=== PATIENT | female | born 1990 | race Caucasian/White ===

== ENCOUNTER → 2017-08-25 | Outpatient (REF) | payer BC | LOC: M LAB REF 14:50 | DX: Z12.4 Encounter for screening for malignant neoplasm of cervix (principal) | CPT/HCPCS: G0123 ==

== ENCOUNTER → 2017-11-13 | Outpatient (CLI) | payer BC ==
[2017-11-13 10:03] LABS: HEMOGLOBIN 14.6 g/dl (12.0-15.5); MEAN CORPUSCULAR HEMOGLOBIN 28.8 pg (27.0-33.0); MEAN CORPUSCULAR VOLUME 84.8 fl (80.0-96.0); PLATELET COUNT, AUTOMATED 260 10^3/uL (150-450); RED BLOOD COUNT 5.07 10^6/uL (4.00-5.40); RED CELL DISTRIBUTION WIDTH 12.4 % (11.5-14.5); WHITE BLOOD COUNT 6.9 10^3/uL (4.0-10.0)
[2017-11-13 10:44] LABS: ALBUMIN 4.1 GM/DL (3.2-5.2); ALBUMIN/GLOBULIN RATIO 1.11 (1.00-1.93); ALKALINE PHOSPHATASE 151 U/L (45-117); ALT/SGPT 23 U/L (12-78); ANION GAP 7 MEQ/L (8-16); AST/SGOT 15 U/L (7-37); BILIRUBIN,TOTAL 0.5 MG/DL (0.2-1.0); BLOOD UREA NITROGEN 13 MG/DL (7-18); CARBON DIOXIDE LEVEL 28 MEQ/L (21-32); CHLORIDE LEVEL 106 MEQ/L (98-107); CREATININE FOR GFR 0.78 MG/DL (0.55-1.30); GLOMERULAR FILTRATION RATE > 60.0 (>60); GLUCOSE, FASTING 96 MG/DL (70-100); POTASSIUM SERUM 4.4 MEQ/L (3.5-5.1); SODIUM LEVEL 141 MEQ/L (136-145); TOTAL PROTEIN 7.8 GM/DL (6.4-8.2)
[2017-11-13 11:03] LABS: ESTIMATED AVERAGE GLUCOSE 126 MG/DL (60-110)
== END ==
LOC: M WUC 08:52
DX: Z00.00 Encounter for general adult medical examination without abnormal findings (principal); Z83.3 Family history of diabetes mellitus; Z83.49 Family history of other endocrine, nutritional and metabolic diseases
CPT/HCPCS: 84443

== ENCOUNTER → 2018-12-14 | Outpatient (REF) | payer BC ==
[~2018-12-14] MED LIST: GLYB-147; IBUP-1114 PO; MAPA500T2 PO; TUMS500C PO
== END ==
LOC: M LAB REF 17:35
PROVIDERS: ATTEND Advanced Practice Midwife
DX: Z12.4 Encounter for screening for malignant neoplasm of cervix (principal)

== ENCOUNTER → 2019-07-12 | Outpatient (REF) | payer BC ==
[2019-07-12 22:31] LABS: CHLAMYDIA DNA AMPLIFICATION NEGATIVE (NEGATIVE); GC DNA AMPLIFICATION NEGATIVE (NEGATIVE)
== END ==
LOC: M WUC 09:55
PROVIDERS: ATTEND Physician Assistant
DX: N30.00 Acute cystitis without hematuria (principal)

== ENCOUNTER → 2019-08-02 | Outpatient (REF) | payer BC ==
[2019-08-03 13:44] LABS: CHLAMYDIA DNA AMPLIFICATION NEGATIVE (NEGATIVE); GC DNA AMPLIFICATION NEGATIVE (NEGATIVE)
== END ==
LOC: M SFHCWAGY 10:13
PROVIDERS: ATTEND Nurse Practitioner Women's Health
DX: Z11.3 Encounter for screening for infections with a predominantly sexual mode of transmission (principal); N89.8 Other specified noninflammatory disorders of vagina

== ENCOUNTER → 2019-12-20 | Outpatient (REF) | payer BC ==
[2019-12-20 20:57] LABS: CHLAMYDIA DNA AMPLIFICATION NEGATIVE (NEGATIVE); GC DNA AMPLIFICATION NEGATIVE (NEGATIVE)
== END ==
LOC: M SFHCWAGY 16:36
PROVIDERS: ATTEND Nurse Practitioner Women's Health
DX: Z11.3 Encounter for screening for infections with a predominantly sexual mode of transmission (principal)

== ENCOUNTER → 2021-03-06 | Outpatient (CLI) | payer BC ==
[2021-03-06 11:50] LABS: HEMATOCRIT 42.4 % (36.0-47.0); HEMOGLOBIN 14.4 g/dl (12.0-15.5); MEAN CORPUSCULAR HEMOGLOBIN 30.5 pg (27.0-33.0); MEAN CORPUSCULAR VOLUME 89.8 fl (80.0-96.0); PLATELET COUNT, AUTOMATED 230 10^3/uL (150-450); RED BLOOD COUNT 4.72 10^6/uL (4.00-5.40)
[2021-03-06 12:25] LABS: ALBUMIN 3.8 GM/DL (3.2-5.2); ALT/SGPT 29 U/L (12-78); BILIRUBIN,TOTAL 0.8 MG/DL (0.2-1.0); BLOOD UREA NITROGEN 12 MG/DL (7-18); CALCIUM LEVEL 9.2 MG/DL (8.5-10.1); CARBON DIOXIDE LEVEL 32 MEQ/L (21-32); CHLORIDE LEVEL 103 MEQ/L (98-107); FERRITIN 59 NG/ML (8-252); GLOMERULAR FILTRATION RATE > 60.0 (>60); GLUCOSE, FASTING 100 MG/DL (70-100); IRON (FE) 132 UG/DL (50-170); PERCENT SATURATION 56.4 % (13.2-45.0); POTASSIUM SERUM 3.9 MEQ/L (3.5-5.1); SODIUM LEVEL 138 MEQ/L (136-145); TOTAL IRON BINDING CAPACITY 234 UG/DL (250-450); TOTAL PROTEIN 7.1 GM/DL (6.4-8.2)
[2021-03-06 12:28] LABS: HEMOGLOBIN A1c 5.2 %
== END ==
LOC: M WUC 08:58
PROVIDERS: ATTEND Nurse Practitioner Adult Health
DX: Z00.00 Encounter for general adult medical examination without abnormal findings (principal); Z83.3 Family history of diabetes mellitus; Z83.49 Family history of other endocrine, nutritional and metabolic diseases; R53.83 Other fatigue

== ENCOUNTER → 2021-05-26 | Outpatient (REF) | payer BC ==
[2021-05-26 19:18] LABS: APPEARANCE, URINE CLEAR (CLEAR); BACTERIA, URINE AUTO NEGATIVE (NEGATIVE); BILIRUBIN, URINE AUTO NEGATIVE (NEGATIVE); BLOOD, URINE BLOOD NEGATIVE (NEGATIVE); COLOR, URINE YELLOW (YELLOW); GLUCOSE, URINE (UA) AUTO NEGATIVE (NEGATIVE); KETONE, URINE AUTO NEGATIVE (NEGATIVE); LEUKOCYTE ESTERASE, URINE AUTO NEGATIVE (NEGATIVE); NITRITE, URINE AUTO NEGATIVE (NEGATIVE); PROTEIN, URINE AUTO NEGATIVE (NEGATIVE); RBC, URINE AUTO 0 /HPF (0-3); SPECIFIC GRAVITY URINE AUTO 1.013 (1.002-1.035); SQUAMOUS EPITHELIAL CELL UR AU 4 /HPF (0-6); UROBILINOGEN, URINE AUTO 0.2 mg/dL (0.0-2.0); WBC, URINE AUTO 0 /HPF (0-3)
== END ==
LOC: M LAB REF 18:39
PROVIDERS: ATTEND Physician Assistant Medical
DX: N39.0 Urinary tract infection, site not specified (principal)

== ENCOUNTER → 2021-05-28 | Outpatient (REF) | payer BC | LOC: M SFHCWAGY 17:45 | PROVIDERS: ATTEND Advanced Practice Midwife | DX: Z12.4 Encounter for screening for malignant neoplasm of cervix (principal) ==

== ENCOUNTER → 2021-11-22 | Outpatient (REF) | payer BC | LOC: M LAB REF 18:55 | PROVIDERS: ATTEND Physician Assistant | DX: R50.9 Fever, unspecified (principal); R05.9 Cough, unspecified ==

== ENCOUNTER → 2022-02-12 | Outpatient (CLI) | payer BC ==
[2022-02-12 15:29] LABS: BASO # 0.1 10^3/uL (0.0-0.2); BASO % 0.6 % (0.0-1.0); EOS # 0.2 10^3/uL (0.0-0.5); EOS % 2.2 % (0.0-3.0); HEMATOCRIT 40.7 % (36.0-47.0); HEMOGLOBIN 13.8 g/dl (12.0-15.5); LYMPH # 1.5 10^3/uL (1.5-5.0); LYMPH % 17.7 % (24.0-44.0); MEAN CORPUSCULAR HEMOGLOBIN 30.7 pg (27.0-33.0); MEAN CORPUSCULAR HGB CONC 33.9 g/dl (32.0-36.5); MEAN CORPUSCULAR VOLUME 90.4 fl (80.0-96.0); MONO # 0.3 10^3/uL (0.0-0.8); MONO % 3.8 % (2.0-8.0); NEUTROPHILS # 6.2 10^3/uL (1.5-8.5); NEUTROPHILS % 75.1 % (36.0-66.0); PLATELET COUNT, AUTOMATED 236 10^3/uL (150-450); WHITE BLOOD COUNT 8.2 10^3/uL (4.0-10.0)
[2022-02-12 16:36] LABS: GLUCOSE CHALLENGE TEST 1 HOUR 171 MG/DL (LESS THAN 140)
[2022-02-12 17:12] LABS: GC DNA AMPLIFICATION NEGATIVE (NEGATIVE)
[2022-02-12 18:50] LABS: HEPATITIS C VIRUS ABY INDEX < 0.0 INDEX (<0.8); HIV 1&2 SCREEN CENTAUR NEGATIVE (NEGATIVE)
== END ==
LOC: M PLALAB 10:43
PROVIDERS: ATTEND Advanced Practice Midwife
DX: O09.291 Supervision of pregnancy with other poor reproductive or obstetric history, first trimester (principal)

== ENCOUNTER → 2022-02-21 | Outpatient (CLI) | payer BC | LOC: M LAB 07:59 | PROVIDERS: ATTEND Advanced Practice Midwife | DX: O99.810 Abnormal glucose complicating pregnancy (principal) ==

== ENCOUNTER → 2022-04-14 | Outpatient (CLI) | payer BC | LOC: M WHC 09:42 | PROVIDERS: ATTEND Advanced Practice Midwife | DX: O09.292 Supervision of pregnancy with other poor reproductive or obstetric history, second trimester (principal); Z3A.19 19 weeks gestation of pregnancy ==

== ENCOUNTER → 2022-05-16 | Outpatient (REF) | payer BC | LOC: M PLALAB 11:46 | PROVIDERS: ATTEND Advanced Practice Midwife | DX: O09.292 Supervision of pregnancy with other poor reproductive or obstetric history, second trimester (principal); Z86.32 Personal history of gestational diabetes ==

== ENCOUNTER → 2022-05-28 | Outpatient (CLI) | payer BC | LOC: M WHC 08:33 | PROVIDERS: ATTEND Advanced Practice Midwife | DX: O09.292 Supervision of pregnancy with other poor reproductive or obstetric history, second trimester (principal); Z3A.25 25 weeks gestation of pregnancy ==

== ENCOUNTER → 2022-06-16 | Outpatient (CLI) | payer BC | LOC: M LAB 07:47 | PROVIDERS: ATTEND Advanced Practice Midwife | DX: O09.292 Supervision of pregnancy with other poor reproductive or obstetric history, second trimester (principal); Z86.32 Personal history of gestational diabetes ==

== ENCOUNTER → 2022-08-01 | Outpatient (CLI) | payer BC, MEDICAID, SELFPAY | LOC: M WHC 15:21 | PROVIDERS: ATTEND Advanced Practice Midwife | DX: O09.293 Supervision of pregnancy with other poor reproductive or obstetric history, third trimester (principal); Z3A.35 35 weeks gestation of pregnancy ==

== ENCOUNTER → 2022-08-08 | Outpatient (REF) | payer BC, MEDICAID ==
[~2022-08-08] MED LIST changes: +COLA100C5 PO; +IBUP80TA PO; +METF10004 PO; +METF500T13 PO; +MULTTAB20 PO; +PERCOCET PO; +ZOLO25TA PO
== END ==
LOC: M PLALAB 10:35
PROVIDERS: ATTEND Advanced Practice Midwife
DX: O24.415 Gestational diabetes mellitus in pregnancy, controlled by oral hypoglycemic drugs (principal); Z3A.00 Weeks of gestation of pregnancy not specified

== ENCOUNTER 2022-08-25 07:38 | Inpatient (IN) | payer BC, MEDICAID, OTHER ==
[~2022-08-25] VITALS: Ht 167.6 cm; Wt 99.9 kg
[2022-08-25] VITALS (21 sets, daily range): BP systolic 106–178; BP diastolic 56–94
[~2022-08-25 07:38] MED LIST changes: -COLA100C5 PO; -IBUP80TA PO; -METF10004 PO; -METF500T13 PO; -MULTTAB20 PO; -PERCOCET PO; -ZOLO25TA PO
[2022-08-25] MEDS ORDERED: LACTATED RINGER'S 1000 ML IV STA (07:56)
[2022-08-25] MEDS ORDERED: OXYTOCIN INJ 10UNITS/ML 1ML VIAL IM PRN (08:00)
[2022-08-25] MEDS ORDERED: OXYTOCIN DRIP 30 UNITS in IV 1 EA IV PRN (08:00)
[2022-08-25] MEDS ORDERED: CARBOPROST TROMETHAMINE 250 MCG/ML AMP IM PRN (08:00)
[2022-08-25] MEDS ORDERED: TRANEXAMIC ACID INJection 1,000 MG in NS 100 ML IV PRN (08:00)
[2022-08-25] MEDS ORDERED: METHYLERGONOVINE MALEATE 0.2MG/ML 1ML VIAL IM PRN (08:00)
[2022-08-25] MEDS ORDERED: LIDOCAINE 1% MDV 20ML VIAL INFIL PRN (08:00)
[2022-08-25] MEDS ORDERED: MULTTAB20 PO (08:19)
[2022-08-25] MEDS ORDERED: TUMS500C PO (08:19)
[2022-08-25] MEDS ORDERED: METF500T13 PO (08:19)
[2022-08-25] MEDS ORDERED: ZOLO25TA PO (08:19)
[2022-08-25] MEDS ORDERED: METF10004 PO (08:19)
[2022-08-25] MEDS ORDERED: HOME MED LIST COMPLETE! XX SCH (08:25)
[2022-08-25 09:22] LABS: HEMATOCRIT 37.3 % (36.0-47.0); HEMOGLOBIN 12.5 g/dl (12.0-15.5); MEAN CORPUSCULAR HEMOGLOBIN 28.5 pg (27.0-33.0); MEAN CORPUSCULAR HGB CONC 33.5 g/dl (32.0-36.5); PLATELET COUNT, AUTOMATED 237 10^3/uL (150-450); RED BLOOD COUNT 4.39 10^6/uL (4.00-5.40); WHITE BLOOD COUNT 9.6 10^3/uL (4.0-10.0)
[2022-08-25] MEDS ORDERED: miSOPROStol 50MCG 1/2 TABLET PO ONE (09:25)
[2022-08-25] MEDS ORDERED: metFORMIN (GLUCOPHAGE) 500MG TAB PO ONE (10:00)
[2022-08-25] MEDS ORDERED: OXYTOCIN DRIP 30 UNITS in IV 1 EA IV SCH ×2 (13:35→20:20)
[2022-08-25] MEDS: LR 1,000 ML IV SCH ×3 (13:58→23:00)
[2022-08-25] MEDS: metFORMIN (GLUCOPHAGE) 1000MG TABLET PO SCH (18:03)
[2022-08-25] MEDS ORDERED: CLINDAMYCIN 900MG/50ML PREMIX BAG As Ordered ONE (18:50)
[2022-08-25] MEDS ORDERED: fentaNYL 100 MCG/2 ML INJECTION As Ordered ONE ×2 (18:51→20:11)
[2022-08-25] MEDS ORDERED: MIDAZOLAM INJ 2MG/2ML VIAL As Ordered ONE (18:52)
[2022-08-25] MEDS ORDERED: AZITHROMYCIN INJ 500MG VIAL As Ordered ONE (18:52)
[2022-08-25] MEDS ORDERED: ONDANSETRON 4MG 2ML VIAL As Ordered ONE (18:53)
[2022-08-25 19:03] LABS: CORD GAS HCO3 A 20.7 MEQ/L; CORD GAS PCO2 A 53.9 mmHg; CORD GAS PH A 7.202 UNITS; CORD GAS TCO2 A 22.3 MEQ/L
[2022-08-25 19:04] LABS: CORD GAS ABE V -6.9; CORD GAS HCO3 V 20.9 MEQ/L; CORD GAS O2 SAT V 79.7 %; CORD GAS PCO2 V 50.2 mmHg; CORD GAS PH V 7.238 UNITS; CORD GAS PO2 V 40.1 mmHg; CORD GAS SBC V 18.5 MEQ/L; CORD GAS TCO2 V 22.5 MEQ/L
[2022-08-25] MEDS ORDERED: OXYTOCIN 30UNITS IN 0.9% NaCl 500ML IV BAG As Ordered ONE ×2 (19:21→19:34)
[2022-08-25] MEDS ORDERED: AZITHROMYCIN INJ 500 MG, VIAL MATE ADAPTER 1 EACH in NS 250 ML IV ONE (19:25)
[2022-08-25] MEDS ORDERED: CLINDAMYCIN 300 MG in IV 1 EA IV ONE (19:25)
[2022-08-25] MEDS ORDERED: KETOROLAC 60MG 2ML VIAL As Ordered ONE (19:34)
[2022-08-25] MEDS ORDERED: MORPHINE 2 MG/ML 1ML VIAL IV PRN (20:00)
[2022-08-25] MEDS ORDERED: LR 1,000 ML IV SCH (20:00)
[2022-08-25] MEDS ORDERED: ONDANSETRON 4MG 2ML VIAL IV PRN (20:00)
[2022-08-25] MEDS ORDERED: GENTAMICIN 450 MG in D5W 100 ML IV ONE (20:00)
[2022-08-25] MEDS ORDERED: oxyCODONE 5MG TAB PO PRN (20:00)
[2022-08-25] MEDS: fentaNYL 100 MCG/2 ML INJECTION IV PRN ×3 (20:15→20:30)
[2022-08-25] MEDS ORDERED: SIMETHICONE 80MG CHEW TAB PO PRN (20:20)
[2022-08-25] MEDS ORDERED: PERCOCET 5MG/325MG TAB PO PRN ×2 (20:20)
[2022-08-25] MEDS ORDERED: MORPHINE 4 MG/ML 1ML VIAL IV PRN (20:20)
[2022-08-25] MEDS ORDERED: RHOGAM 300MCG (1500IU) INJ IM SCH (20:20)
[2022-08-25] MEDS ORDERED: PERCOCET PO (20:40)
[2022-08-25] MEDS ORDERED: COLA100C5 PO (20:40)
[2022-08-25] MEDS ORDERED: IBUP80TA PO (20:40)
[2022-08-25] MEDS: DOCUSATE SODIUM 100MG CAPSULE PO SCH (21:00)
[2022-08-26 00:11] VITALS: BP 109/56
[2022-08-26] MEDS: KETOROLAC 30 MG/ML 1ML VIAL IV SCH ×3 (01:44→15:44)
[2022-08-26 02:06] VITALS: BP 99/58
[2022-08-26] MEDS: LR 1,000 ML IV SCH ×4 (04:20→13:35)
[2022-08-26 06:02] VITALS: BP 105/69
[2022-08-26 08:14] LABS: HEMOGLOBIN 9.5 g/dl (12.0-15.5); MEAN CORPUSCULAR HEMOGLOBIN 28.5 pg (27.0-33.0); MEAN CORPUSCULAR HGB CONC 32.8 g/dl (32.0-36.5); MEAN CORPUSCULAR VOLUME 87.1 fl (80.0-96.0); PLATELET COUNT, AUTOMATED 199 10^3/uL (150-450); RED BLOOD COUNT 3.33 10^6/uL (4.00-5.40); WHITE BLOOD COUNT 11.3 10^3/uL (4.0-10.0)
[2022-08-26] MEDS: PRENATAL VITAMINS CHEWABLE TABLET PO SCH (08:46)
[2022-08-26] MEDS: DOCUSATE SODIUM 100MG CAPSULE PO SCH ×2 (08:46→21:30)
[2022-08-26] MEDS: SERTRALINE HCL 25 MG TABLET PO SCH (08:47)
[2022-08-26] MEDS: metFORMIN (GLUCOPHAGE) 1000MG TABLET PO SCH (17:39)
[2022-08-26] MEDS: IBUPROFEN 800 MG TAB PO SCH (21:30)
[2022-08-27] MEDS: IBUPROFEN 800 MG TAB PO SCH (05:53)
[2022-08-27 06:00] VITALS: BP 113/62
[2022-08-27] MEDS: DOCUSATE SODIUM 100MG CAPSULE PO SCH (08:34)
[2022-08-27] MEDS: PRENATAL VITAMINS CHEWABLE TABLET PO SCH (08:34)
[2022-08-27] MEDS: SERTRALINE HCL 25 MG TABLET PO SCH (08:35)
[2022-08-27] MEDS ORDERED: MEASLES,MUMPS,RUBELLA VACCINE INJ (MMR-II) SC.IMMUN ONE (09:00)
[2022-08-27 10:00] VITALS: BP_SYST 113; BP_DIAS 60; BP_DIAS 66
[2022-08-27] MEDS ORDERED: INFLUENZA QUADRIVALENT PF VACCINE 0.5ML SYRINGE IM.IMMUN ONE (10:00)
== END 2022-08-27 12:35 | disposition home or self-care (01) | DRG 540 ==
LOC: M LDI 07:38 → M OBS 20:29
PROVIDERS: ADMIT Advanced Practice Midwife; ATTEND Obstetrics & Gynecology
PROC: 10907ZC Drainage of Amniotic Fluid, Therapeutic from Products of Conception, Via Natural or Artificial Opening (ICD-10-PCS; 2022-08-25)
PROC: 10D00Z1 Extraction of Products of Conception, Low, Open Approach (ICD-10-PCS; principal; 2022-08-25 18:55)
DX: O24.425 Gestational diabetes mellitus in childbirth, controlled by oral hypoglycemic drugs (principal); F43.21 Adjustment disorder with depressed mood; O69.0XX0 Labor and delivery complicated by prolapse of cord, not applicable or unspecified; Z3A.38 38 weeks gestation of pregnancy; O99.344 Other mental disorders complicating childbirth; Z88.0 Allergy status to penicillin; Z37.0 Single live birth; Z79.84 Long term (current) use of oral hypoglycemic drugs; Z79.899 Other long term (current) drug therapy

== ENCOUNTER 2023-04-20 15:48 | Emergency (ER) | payer MEDICAID, OTHER ==
[~2023-04-20] VITALS: Ht 167.6 cm; Wt 103.6 kg
[~2023-04-20 15:48] MED LIST changes: +COLA100C5 PO; +IBUP80TA PO; +METF10004 PO; +METF500T13 PO; +MULTTAB20 PO; +PERCOCET PO; +ZOLO25TA PO
[2023-04-20 15:50] VITALS: TEMP 98.9; O2SAT 98
[2023-04-20 16:45] LABS: APPEARANCE, URINE CLEAR (CLEAR); BACTERIA, URINE AUTO NEGATIVE (NEGATIVE); BILIRUBIN, URINE AUTO NEGATIVE (NEGATIVE); BLOOD, URINE BLOOD NEGATIVE (NEGATIVE); COLOR, URINE YELLOW (YELLOW); GLUCOSE, URINE (UA) AUTO NEGATIVE (NEGATIVE); KETONE, URINE AUTO NEGATIVE (NEGATIVE); LEUKOCYTE ESTERASE, URINE AUTO NEGATIVE (NEGATIVE); MUCUS, URINE SMALL (NEGATIVE); NITRITE, URINE AUTO NEGATIVE (NEGATIVE); PROTEIN, URINE AUTO NEGATIVE (NEGATIVE); RBC, URINE AUTO 1 /HPF (0-3); SPECIFIC GRAVITY URINE AUTO 1.005 (1.002-1.035); SQUAMOUS EPITHELIAL CELL UR AU 2 /HPF (0-6); UROBILINOGEN, URINE AUTO 0.2 mg/dL (0.0-2.0); WBC, URINE AUTO 2 /HPF (0-3)
[2023-04-20] MEDS ORDERED: SERT50TA29 (17:08)
[2023-04-20] MEDS ORDERED: METOCLOPRAMIDE INJ 10MG/2ML VIAL IV ONE (19:00)
[2023-04-20] MEDS ORDERED: NS 1,000 ML IV ONE (19:00)
[2023-04-20] MEDS ORDERED: KETOROLAC 30 MG/ML 1ML VIAL IV ONE (19:00)
[2023-04-20 19:45] LABS: BASO % 0.5 % (0.0-1.0); EOS # 0.4 10^3/uL (0.0-0.5); EOS % 4.2 % (0.0-3.0); HEMATOCRIT 40.2 % (36.0-47.0); HEMOGLOBIN 13.6 g/dl (12.0-15.5); LYMPH # 2.6 10^3/uL (1.5-5.0); LYMPH % 29.1 % (24.0-44.0); MEAN CORPUSCULAR HEMOGLOBIN 28.5 pg (27.0-33.0); MEAN CORPUSCULAR HGB CONC 33.8 g/dl (32.0-36.5); MEAN CORPUSCULAR VOLUME 84.3 fl (80.0-96.0); MONO # 0.5 10^3/uL (0.0-0.8); NEUTROPHILS # 5.3 10^3/uL (1.5-8.5); PLATELET COUNT, AUTOMATED 289 10^3/uL (150-450); RED BLOOD COUNT 4.77 10^6/uL (4.00-5.40); WHITE BLOOD COUNT 8.8 10^3/uL (4.0-10.0)
[2023-04-20 21:43] VITALS: BP 135/75
[2023-04-20 22:12] LABS: RSV AMPLIFICATION NEGATIVE (NEGATIVE)
== END 2023-04-20 22:34 | disposition home or self-care (01) ==
LOC: M ED 15:48
DX: R51.9 Headache, unspecified (principal); R42 Dizziness and giddiness; F32.A Depression, unspecified; Z88.0 Allergy status to penicillin; Z79.52 Long term (current) use of systemic steroids
CPT/HCPCS: 70450; 76856; 80047; 81001; 84702; 85025; 87631; 93976; 96361; 96374; 96375; 99284; J1885; J2765

== ENCOUNTER → 2023-04-23 | Outpatient (REF) | payer OTHER ==
[~2023-04-23] MED LIST changes: +SERT50TA29
== END ==
LOC: M SFHCWAGY 17:37
PROVIDERS: ATTEND Obstetrics & Gynecology
DX: Z12.4 Encounter for screening for malignant neoplasm of cervix (principal)